=== PATIENT | female | born 2000 | race Caucasian/White ===

== ENCOUNTER 2020-05-07 20:23 | Emergency (ER) | payer BC ==
[~2020-05-07] VITALS: Ht 157.5 cm; Wt 70.8 kg
--- NOTE | 2020-05-07 20:35 | NUR ---
Dr. Zuniga at bedside for MSE.
[2020-05-07 20:51] LABS: BASOPHILS # (AUTO) 0.1 K/uL (0.0-8.0); BASOPHILS % (AUTO) 0.6 % (0.0-2.0); EOSINOPHILS # (AUTO) 0.1 K/uL (0.0-0.7); EOSINOPHILS % (AUTO) 1.2 % (0.0-7.0); HEMATOCRIT 36.4 % (31.2-41.9); HEMOGLOBIN 12.5 g/dL (10.9-14.3); LYMPHOCYTES # (AUTO) 3.3 K/uL (20.0-40.0); LYMPHOCYTES % (AUTO) 32.7 % (20.5-51.5); MEAN CORPUSCULAR HEMOGLOBIN 30.7 uug (24.7-32.8); MEAN CORPUSCULAR HGB CONC 34 g/dL (32.3-35.6); MEAN CORPUSCULAR VOLUME 89.6 fL (75.5-95.3); MONOCYTES # (AUTO) 0.5 K/uL (2.0-10.0); NEUTROPHILS # (AUTO) 6.1 K/uL (1.8-8.9); NEUTROPHILS % (AUTO) 60.5 % (38.5-71.5); PLATELET COUNT (AUTO) 270 K/uL (179-408); RED BLOOD CELL COUNT(AUTO) 4.06 MIL/uL (3.63-4.92); WHITE BLOOD COUNT (AUTO) 10.1 K/uL (3.8-11.8)
[2020-05-07 20:56] LABS: CREATININE 1.1 mg/dL (0.6-1.3); POTASSIUM 3.7 mmol/L (3.5-5.1)
--- NOTE | 2020-05-07 21:13 | NUR ---
Pt provided urine sample, sent to lab.
[2020-05-07 21:18] LABS: *URINE HCG, QUAL NEGATIVE (NEGATIVE)
--- NOTE | 2020-05-07 23:00 | NUR ---
Patient discharged to home in stable condition. Written and verbal after care instructions given. Patient verbalizes understanding of instructions. Stressed follow up or return to ER for worsening s/s. Patient ambulated out of ER with steady gait, no acute signs of distress, VSS, all belongings taken, IV site discontinued.
[2020-05-07 23:01] VITALS: BP 109/60
== END 2020-05-07 23:01 | disposition home or self-care (01) ==
LOC: ER 20:26
DX: R55 Syncope and collapse (principal); S06.9X1A Unspecified intracranial injury with loss of consciousness of 30 minutes or less, initial encounter; R40.2412 Glasgow coma scale score 13-15, at arrival to emergency department; W19.XXXA Unspecified fall, initial encounter; Y92.019 Unspecified place in single-family (private) house as the place of occurrence of the external cause
CPT/HCPCS: 36415; 84703; 85025; 93005; A4663